=== PATIENT | male | born 1950 | race African-American/Black ===

== ENCOUNTER 2018-06-14 18:03 | Inpatient (IN) | payer OTHER, MEDICARE ==
[~2018-06-14] VITALS: Ht 193 cm; Wt 108.9 kg
[~2018-06-14 18:03] MED LIST: GLIP5TAB12 PO; SIMV10TA6 PO
[2018-06-14] MEDS ORDERED: PIPERACILLIN/TAZ 3.375G PREMIX 50 ML IV ONE (19:15)
[2018-06-14] MEDS ORDERED: VANCOMYCIN 1 G PREMIX 200 ML IV ONE (19:15)
[2018-06-14] MEDS ORDERED: SODIUM CHLORIDE 0.9% 1,000 ML IV ONE (20:33)
[2018-06-14] MEDS ORDERED: ONDANSETRON HCL 4MG/2ML INJ IV ONE (20:45)
[2018-06-14] MEDS ORDERED: MORPHINE SULFATE 4 MG/ML CPJ (NOT FOR IM USE) IV ONE (20:45)
[2018-06-14 21:26] LABS: HEMOGLOBIN. 9.6 g/dL (14.0-18.0); MEAN CORPUSCULAR HEMOGLOBIN 23.8 pg (28.0-32.0); MEAN CORPUSCULAR VOLUME 74.5 fL (80.0-94.0); PLATELET 377 x1000/uL (130-400); RED BLOOD CELL COUNT 4.03 mill/uL (4.7-6.1); RED CELL DISTRIBUTION WIDTH 16.4 % (11.6-14.6)
[2018-06-14 21:33] LABS: CHLORIDE 91 mEq/L (98-107)
[2018-06-14 21:34] LABS: INR 1.2; PARTIAL THROMBOPLASTIN TIME 39.5 sec (23.4-31.0); PROTHROMBIN TIME 11.8 sec (9.1-11.1)
[2018-06-14] MEDS ORDERED: INSULIN REGULAR (HUMULIN R) 300UNITS/3ML IV ONE (21:45)
[2018-06-14] MEDS ORDERED: ENOXAPARIN 100MG/ML SYR SUBCUT ONE (22:00)
[2018-06-14] MEDS ORDERED: LORAZEPAM 0.5MG TABLET PO PRN (22:15)
[2018-06-14] MEDS ORDERED: ONDANSETRON HCL 4MG/2ML INJ IV PRN (22:15)
[2018-06-14] MEDS ORDERED: MAGNESIUM/ALUMINUM HYDROXIDE/SIMETHICONE 30ML UDC PO PRN (22:15)
[2018-06-14] MEDS ORDERED: DEXTROSE 50% WATER 50ML SYRINGE IV PRN (22:15)
[2018-06-14] MEDS ORDERED: GUAIFENESIN 200MG/10ML SUGAR FREE UDC PO PRN (22:15)
[2018-06-14] MEDS ORDERED: NITROGLYCERIN 0.4MG TABLET SL SL PRN (22:15)
[2018-06-14] MEDS ORDERED: CLONIDINE 0.1MG TABLET PO PRN (22:15)
[2018-06-14] MEDS ORDERED: ACETAMINOPHEN 325MG TABLET PO PRN (22:15)
[2018-06-14] MEDS ORDERED: IPRATROPIUM/ALBUTEROL 0.5-3(2.5)MG/3ML NEB INH PRN (22:15)
[2018-06-14] MEDS ORDERED: DOCUSATE SODIUM 100MG CAPSULE PO PRN (22:15)
[2018-06-14] MEDS ORDERED: VANCOMYCIN 1 G PREMIX 200 ML IV SCH (22:15)
[2018-06-14 22:35] LABS: PLATELET ESTIMATE NORMAL
[2018-06-14 22:55] LABS: FOLIC ACID (FOLATE) SERUM 7.7 ng/mL (>5.38)
[2018-06-14] MEDS ORDERED: TRAMADOL 50MG TABLET PO PRN (23:00)
[2018-06-15] MEDS ORDERED: ENOXAPARIN 100MG/ML SYR SUBCUT SCH
[2018-06-15 00:09] LABS: *AMPHETAMINES SCREEN URINE NEGATIVE (NEGATIVE); *BARBITURATES SCREEN URINE NEGATIVE (NEGATIVE); *BENZODIAZEPINES SCREEN URINE NEGATIVE (NEGATIVE); *COCAINE SCREEN URINE NEGATIVE (NEGATIVE)
[2018-06-15 00:10] LABS: CANNABINOID URINE SCREEN NEGATIVE (NEGATIVE); METHADONE URINE SCREEN NEGATIVE (NEGATIVE); OPIATES URINE SCREEN NEGATIVE (NEGATIVE); PHENCYCLIDINE URINE SCREEN NEGATIVE (NEGATIVE)
[2018-06-15] MEDS: ZINC SULFATE 220 MG ( 50 ) CAPSULE PO SCH (11:00)
[2018-06-15] MEDS: ASCORBIC ACID 500 MG TABLET PO SCH ×2 (11:00→22:53)
[2018-06-15] MEDS: FAMOTIDINE 20MG TABLET PO SCH (11:00)
[2018-06-15] MEDS ORDERED: HYDR-2510 MT (11:48)
[2018-06-15] MEDS ORDERED: METF-816 MT (11:48)
[2018-06-15 11:53] VITALS: BP 120/64
[2018-06-15 12:00] VITALS: BP 120/64
[2018-06-15] MEDS ORDERED: VANCOMYCIN 1250MG in DEXTROSE 5% WATER 250ML IV SCH (12:00)
[2018-06-15] MEDS ORDERED: PIPERACILLIN/TAZ 3.375G PREMIX 50 ML IV SCH ×2 (12:00)
[2018-06-15] MEDS: INSULIN LISPRO 100 UNITS/ML SUBCUT SCH ×4 (12:50→22:23)
[2018-06-15] MEDS: BLOOD SUGAR DIAGNOSTIC STRIP TEST SCH ×3 (12:58→21:14)
[2018-06-15 13:19] LABS: HEMOGLOBIN 9.3 g/dL (14.0-18.0); MEAN CORPUSCULAR HEMOGLOBIN 24.1 pg (28.0-32.0); MEAN CORPUSCULAR VOLUME 74.7 fL (80.0-94.0); PLATELET 330 x1000/uL (130-400); RED BLOOD CELL COUNT 3.88 mill/uL (4.7-6.1); RED CELL DISTRIBUTION WIDTH 16.2 % (11.6-14.6)
[2018-06-15 13:23] LABS: CHLORIDE 95 mEq/L (98-107)
[2018-06-15] MEDS: AMLODIPINE 5MG TABLET PO SCH (14:30)
[2018-06-15] MEDS: ENOXAPARIN 100MG/ML SYR SUBCUT SCH (15:33)
[2018-06-15 16:00] VITALS: BP 124/63
[2018-06-15 17:59] LABS: HEPATITIS B SURFACE ANTIGEN NEGATIVE
[2018-06-15] MEDS: PIPERACILLIN/TAZ 3.375G PREMIX 50 ML IV SCH (18:27)
[2018-06-15 18:28] LABS: HEPATITIS A AB IGM NEGATIVE (NEGATIVE)
[2018-06-15] MEDS: SILVER SULFADIAZINE 1% CREAM 50GM TOP SCH (18:29)
[2018-06-15 20:00] VITALS: BP 122/61
[2018-06-16] VITALS: BP 120/57
[2018-06-16] MEDS: PIPERACILLIN/TAZ 3.375G PREMIX 50 ML IV SCH ×5 (00:10→23:22)
[2018-06-16] MEDS: ENOXAPARIN 100MG/ML SYR SUBCUT SCH (03:34)
[2018-06-16 04:00] VITALS: BP 145/68
[2018-06-16 06:20] LABS: HEMATOCRIT 27.6 % (42.0-52.0); MEAN CORPUSCULAR HEMOGLOBIN 24.2 pg (28.0-32.0); MEAN CORPUSCULAR VOLUME 74.4 fL (80.0-94.0); PLATELET 358 x1000/uL (130-400); RED BLOOD CELL COUNT 3.71 mill/uL (4.7-6.1); RED CELL DISTRIBUTION WIDTH 16.8 % (11.6-14.6)
[2018-06-16] MEDS: BLOOD SUGAR DIAGNOSTIC STRIP TEST SCH ×4 (07:20→20:50)
[2018-06-16 08:00] VITALS: BP 128/73
[2018-06-16] MEDS ORDERED: LIDOCAINE HCL 1% 20ML VIAL (Pyxis) INJ ONE (08:42)
[2018-06-16] MEDS: ASCORBIC ACID 500 MG TABLET PO SCH ×2 (09:00→20:50)
[2018-06-16] MEDS: AMLODIPINE 5MG TABLET PO SCH (09:00)
[2018-06-16] MEDS: FAMOTIDINE 20MG TABLET PO SCH (09:00)
[2018-06-16] MEDS: ZINC SULFATE 220 MG ( 50 ) CAPSULE PO SCH (09:00)
[2018-06-16] MEDS: SILVER SULFADIAZINE 1% CREAM 50GM TOP SCH (09:01)
[2018-06-16] MEDS: INSULIN LISPRO 100 UNITS/ML SUBCUT SCH ×4 (09:07→21:56)
[2018-06-16] MEDS ORDERED: VANCOMYCIN 1500MG in DEXTROSE 5% WATER 250ML IV NR (10:00)
[2018-06-16] MEDS: INSULIN GLARGINE UD 100 UNITS/ML SYR SUBCUT SCH (11:07)
[2018-06-16] MEDS ORDERED: CLONIDINE 0.1MG TABLET PO PRN (13:00)
[2018-06-16] MEDS ORDERED: CHLORPROMAZINE HCL 25 MG TABLET PO NR (15:00)
[2018-06-16 15:36] VITALS: BP 140/71
[2018-06-16 15:58] LABS: BG BASE EXCESS -2.3 mmol/L (-2.0-2.0); BG CARBOXYHEMOGLOBIN 0.3 % (0.5-1.5); BG DEOXYHEMOGLOBIN 2.4 % (0.0-5.0); BG FRACTION INSPIRED OXYGEN 21; BG HCO3 ACT 21.3 mmol/L (22.0-26.0); BG METHEMOGLOBIN 0.2 % (0.0-1.5); BG OXYGEN SATURATION 97.6 % (92.0-98.5); BG OXYHEMOGLOBIN 97.1 % (94.0-97.0); BG PCO2 32.3 mmHg (35.0-45.0); BG PH 7.438 (7.350-7.450); BG PO2 104.9 mmHg (75.0-100.0); BG SAMPLE SITE RIGHT RADIAL; BG TOTAL HEMOGLOBIN 9.1 g/dL (12.0-18.0); BG VENT MODE ROOM AIR
[2018-06-16] MEDS ORDERED: LORAZEPAM 0.5MG TABLET PO PRN (18:15)
[2018-06-16 20:00] VITALS: BP 123/69
[2018-06-16] MEDS: ZOLPIDEM TARTRATE 5MG TABLET PO PRN (23:28)
[2018-06-17] VITALS: BP 130/58
[2018-06-17 04:00] VITALS: BP 143/60
[2018-06-17] MEDS: PIPERACILLIN/TAZ 3.375G PREMIX 50 ML IV SCH ×2 (05:33→12:00)
[2018-06-17] MEDS: SODIUM CHLORIDE 0.9% 1,000 ML IV SCH ×2 (05:35→20:06)
[2018-06-17 06:49] LABS: HEMATOCRIT. 25.9 % (42.0-52.0); HEMOGLOBIN. 8.3 g/dL (14.0-18.0); MEAN CORPUSCULAR HEMOGLOBIN 23.6 pg (28.0-32.0); MEAN CORPUSCULAR VOLUME 73.3 fL (80.0-94.0); PLATELET 390 x1000/uL (130-400); RED BLOOD CELL COUNT 3.53 mill/uL (4.7-6.1); RED CELL DISTRIBUTION WIDTH 16.6 % (11.6-14.6)
[2018-06-17 07:04] LABS: CHLORIDE 96 mEq/L (98-107)
[2018-06-17] MEDS: BLOOD SUGAR DIAGNOSTIC STRIP TEST SCH ×4 (07:20→21:53)
[2018-06-17] MEDS: INSULIN LISPRO 100 UNITS/ML SUBCUT SCH ×4 (07:50→21:51)
[2018-06-17] MEDS: SILVER SULFADIAZINE 1% CREAM 50GM TOP SCH (08:59)
[2018-06-17] MEDS: AMLODIPINE 5MG TABLET PO SCH (08:59)
[2018-06-17] MEDS: ASCORBIC ACID 500 MG TABLET PO SCH ×2 (08:59→20:34)
[2018-06-17] MEDS: FAMOTIDINE 20MG TABLET PO SCH (08:59)
[2018-06-17] MEDS: ZINC SULFATE 220 MG ( 50 ) CAPSULE PO SCH (08:59)
[2018-06-17] MEDS: INSULIN GLARGINE UD 100 UNITS/ML SYR SUBCUT SCH (09:07)
[2018-06-17 11:03] LABS: PLATELET ESTIMATE NORMAL
[2018-06-17] MEDS ORDERED: BACITRACIN 50,000 UNITS/VIAL ONE ×2 (11:25→11:45)
[2018-06-17] MEDS ORDERED: NORMAL SALINE 0.9% 10 ML SYR ONE ×2 (11:25→11:46)
[2018-06-17] MEDS ORDERED: BACITRACIN 15GM TUBE TOP ONE (11:26)
[2018-06-17] MEDS ORDERED: LIDOCAINE HCL/EPINEPHRINE 1%-EPI 1:100,000 20 ML VIAL ONE (11:34)
[2018-06-17] MEDS ORDERED: FENTANYL CITRATE/PF 50MCG/ML 2ML VIAL ONE (11:35)
[2018-06-17] MEDS ORDERED: MIDAZOLAM HCL 2 MG/2 ML VIAL ONE (11:35)
[2018-06-17] MEDS ORDERED: PROPOFOL 200MG/20ML VIAL IV ONE (11:35)
[2018-06-17 16:00] VITALS: BP 140/67
[2018-06-17] MEDS ORDERED: VANCOMYCIN 1 G PREMIX 200 ML IV NR (18:00)
[2018-06-17 20:00] VITALS: BP 137/63
[2018-06-17] MEDS ORDERED: ALBUMIN HUMAN 25GM/100ML (25%) IV NR (20:30)
[2018-06-18] VITALS (10 sets, daily range): BP systolic 125–141; BP diastolic 60–88
[2018-06-18] MEDS: CEFAZOLIN 2,000 MG in DEXT 5% WATER 100 ML IV SCH ×3 (03:33→20:27)
[2018-06-18 06:20] LABS: BASOPHILS % 0.2 % (0.0-2.0); EOSINOPHILS % 0.6 % (0.0-5.0); HEMATOCRIT. 22.7 % (42.0-52.0); HEMOGLOBIN. 7.3 g/dL (14.0-18.0); LYMPHOCYTES % 7.3 % (20.0-50.0); MEAN CORPUSCULAR HEMOGLOBIN 23.8 pg (28.0-32.0); MEAN CORPUSCULAR VOLUME 73.6 fL (80.0-94.0); MEAN PLATELET VOLUME 7.8 fl (7.4-10.4); MONOCYTES % 14.2 % (2.0-8.0); NEUTROPHILS % 77.7 % (40.0-76.0); PLATELET 347 x1000/uL (130-400); RED BLOOD CELL COUNT 3.08 mill/uL (4.7-6.1); RED CELL DISTRIBUTION WIDTH 16.8 % (11.6-14.6)
[2018-06-18] MEDS: BLOOD SUGAR DIAGNOSTIC STRIP TEST SCH ×4 (06:28→20:42)
[2018-06-18 07:19] LABS: PHOSPHORUS 4.5 mg/dL (2.5-4.9)
[2018-06-18] MEDS: INSULIN LISPRO 100 UNITS/ML SUBCUT SCH ×4 (07:57→20:41)
[2018-06-18] MEDS: CHLORPROMAZINE HCL 25 MG TABLET PO PRN ×2 (07:58→17:22)
[2018-06-18] MEDS: FAMOTIDINE 20MG TABLET PO SCH (08:07)
[2018-06-18] MEDS: ZINC SULFATE 220 MG ( 50 ) CAPSULE PO SCH (08:07)
[2018-06-18] MEDS: ASCORBIC ACID 500 MG TABLET PO SCH ×2 (08:07→20:26)
[2018-06-18] MEDS: AMLODIPINE 5MG TABLET PO SCH (08:08)
[2018-06-18] MEDS: SILVER SULFADIAZINE 1% CREAM 50GM TOP SCH (08:08)
[2018-06-18 11:46] LABS: CLARITY URINE CLOUDY (CLEAR); COLOR URINE YELLOW (YELLOW); KETONES URINE NEGATIVE (NEGATIVE); LEUKOCYTE ESTERASE URINE NEGATIVE (NEGATIVE); NITRITE URINE NEGATIVE (NEGATIVE); OCCULT BLOOD URINE TRACE (NEGATIVE); PROTEIN URINE TRACE (NEGATIVE); SPECIFIC GRAVITY URINE 1.008 (1.005-1.030)
[2018-06-18] MEDS: INSULIN GLARGINE UD 100 UNITS/ML SYR SUBCUT SCH (12:06)
[2018-06-18] MEDS: SODIUM CHLORIDE 0.9% 1,000 ML IV SCH (16:06)
[2018-06-18 19:52] LABS: HEMATOCRIT 27.1 % (42.0-52.0); HEMOGLOBIN 8.6 g/dL (14.0-18.0)
[2018-06-19] VITALS (7 sets, daily range): BP systolic 99–156; BP diastolic 60–83
[2018-06-19] MEDS: CHLORPROMAZINE HCL 25 MG TABLET PO PRN ×2 (01:14→12:36)
[2018-06-19] MEDS: ZOLPIDEM TARTRATE 5MG TABLET PO PRN (01:14)
[2018-06-19] MEDS: BLOOD SUGAR DIAGNOSTIC STRIP TEST SCH ×3 (07:20→18:12)
[2018-06-19 07:50] LABS: HEMATOCRIT. 26.7 % (42.0-52.0); HEMOGLOBIN. 8.5 g/dL (14.0-18.0); MEAN CORPUSCULAR HEMOGLOBIN 23.6 pg (28.0-32.0); MEAN CORPUSCULAR VOLUME 74.6 fL (80.0-94.0); MEAN PLATELET VOLUME 7.8 fl (7.4-10.4); PLATELET 394 x1000/uL (130-400); RED BLOOD CELL COUNT 3.59 mill/uL (4.7-6.1)
[2018-06-19] MEDS: FAMOTIDINE 20MG TABLET PO SCH (09:00)
[2018-06-19] MEDS: ZINC SULFATE 220 MG ( 50 ) CAPSULE PO SCH (09:00)
[2018-06-19] MEDS: ASCORBIC ACID 500 MG TABLET PO SCH (09:00)
[2018-06-19] MEDS: AMLODIPINE 5MG TABLET PO SCH (09:00)
[2018-06-19] MEDS: CEFAZOLIN 2,000 MG in DEXT 5% WATER 100 ML IV SCH (09:33)
[2018-06-19] MEDS: INSULIN LISPRO 100 UNITS/ML SUBCUT SCH ×3 (09:37→18:22)
[2018-06-19 09:54] LABS: PHOSPHORUS 3.6 mg/dL (2.5-4.9)
[2018-06-19] MEDS: INSULIN GLARGINE UD 100 UNITS/ML SYR SUBCUT SCH (11:04)
[2018-06-19] MEDS: SODIUM CHLORIDE 0.9% 1,000 ML IV SCH (12:38)
[2018-06-19 13:07] LABS: A/G RATIO 0.6 (0.7-1.7); ALBUMIN 2.1 g/dL (2.9-4.4); ALPHA-1-GLOBULIN 0.5 g/dL (0.0-0.4); ALPHA-2-GLOBULIN 0.8 g/dL (0.4-1.0); BETA GLOBULIN 0.9 g/dL (0.7-1.3); GAMMA GLOBULINS 1.6 g/dL (0.4-1.8); GLOBULIN TOTAL 3.8 g/dL (2.2-3.9); KAPPA LT CHAINS FREE SERUM 141.7 mg/L (3.3-19.4); KAPPA/LAMBDA RATIO 1.82 (0.26-1.65); LAMBDA LT CHAINS FREE SERUM 77.7 mg/L (5.7-26.3); M-SPIKE Not Observed g/dL (Not Observed); TOTAL PROTEIN SERUM 5.9 g/dL (6.0-8.5)
[2018-06-19 13:52] LABS: PLATELET ESTIMATE NORMAL
[2018-06-19] MEDS ORDERED: TRAMADOL 50MG TABLET PO PRN (18:00)
[2018-06-19] MEDS ORDERED: LORAZEPAM 0.5MG TABLET PO PRN (18:15)
[2018-06-20] MEDS ORDERED: APIXABAN 5 MG TABLET PO SCH (09:00)
[2018-06-23 07:16] LABS: ALBUMIN URINE 23.1 % (.); ALPHA-1-GLOBULIN URINE 5.5 % (.); ALPHA-2-GLOBULIN URINE 16.6 % (.); BETA GLOBULIN URINE 19.5 % (.); GAMMA GLOBULIN URINE 35.3 % (.); TOTAL PROTEIN RANDOM URINE 33.3 mg/dL (Not Estab.)
== END 2018-06-19 19:15 | DRG 853 ==
LOC: ER 18:03 → 6EST 20:35 → EDBEDREQTM 20:39 → EDBEDREQ 20:39 → EDBEDREQSVC 20:39 → EDBEDREQTM 21:58 → CANRESERV 06-15 07:50 → ENRESERV 06-15 07:50 → EDBEDREQSVC 06-15 08:15 → SUPCPDRO 06-15 08:33 → ENRESERV 06-15 10:09
PROVIDERS: ADMIT Internal Medicine; ATTEND Internal Medicine
PROC: 02HV33Z Insertion of Infusion Device into Superior Vena Cava, Percutaneous Approach (ICD-10-PCS; 2018-06-16)
PROC: B5181ZA Fluoroscopy of Superior Vena Cava using Low Osmolar Contrast, Guidance (ICD-10-PCS; 2018-06-16)
PROC: B548ZZA Ultrasonography of Superior Vena Cava, Guidance (ICD-10-PCS; 2018-06-16)
PROC: 0Y9L3ZZ Drainage of Left Ankle Region, Percutaneous Approach (ICD-10-PCS; principal; 2018-06-17)
PROC: 0QBK0ZZ Excision of Left Fibula, Open Approach (ICD-10-PCS; 2018-06-17)
PROC: 30233N1 Transfusion of Nonautologous Red Blood Cells into Peripheral Vein, Percutaneous Approach (ICD-10-PCS; 2018-06-18)
DX: A41.01 Sepsis due to Methicillin susceptible Staphylococcus aureus (principal); E43 Unspecified severe protein-calorie malnutrition; L03.116 Cellulitis of left lower limb; E87.1 Hypo-osmolality and hyponatremia; D68.59 Other primary thrombophilia; I82.431 Acute embolism and thrombosis of right popliteal vein; E87.2 Acidosis; N39.0 Urinary tract infection, site not specified; M87.9 Osteonecrosis, unspecified; L02.416 Cutaneous abscess of left lower limb; L97.329 Non-pressure chronic ulcer of left ankle with unspecified severity; T79.7XXA Traumatic subcutaneous emphysema, initial encounter; M86.8X6 Other osteomyelitis, lower leg; N17.9 Acute kidney failure, unspecified; R65.20 Severe sepsis without septic shock; E11.65 Type 2 diabetes mellitus with hyperglycemia; E83.52 Hypercalcemia; D63.8 Anemia in other chronic diseases classified elsewhere; E86.0 Dehydration; E78.5 Hyperlipidemia, unspecified; E11.69 Type 2 diabetes mellitus with other specified complication; E11.621 Type 2 diabetes mellitus with foot ulcer; B96.1 Klebsiella pneumoniae [K. pneumoniae] as the cause of diseases classified elsewhere; E11.22 Type 2 diabetes mellitus with diabetic chronic kidney disease; E80.6 Other disorders of bilirubin metabolism; E11.42 Type 2 diabetes mellitus with diabetic polyneuropathy; E11.51 Type 2 diabetes mellitus with diabetic peripheral angiopathy without gangrene; E11.628 Type 2 diabetes mellitus with other skin complications; I12.9 Hypertensive chronic kidney disease with stage 1 through stage 4 chronic kidney disease, or unspecified chronic kidney disease; M14.672 Charcot's joint, left ankle and foot; E11.622 Type 2 diabetes mellitus with other skin ulcer; M65.9 Synovitis and tenosynovitis, unspecified; N18.2 Chronic kidney disease, stage 2 (mild); N40.1 Benign prostatic hyperplasia with lower urinary tract symptoms; S93.06XA Dislocation of unspecified ankle joint, initial encounter; X58.XXXA Exposure to other specified factors, initial encounter; Y93.89 Activity, other specified; Y92.89 Other specified places as the place of occurrence of the external cause; Y99.8 Other external cause status; Z79.899 Other long term (current) drug therapy; Z82.49 Family history of ischemic heart disease and other diseases of the circulatory system; Z83.3 Family history of diabetes mellitus; Z68.29 Body mass index [BMI] 29.0-29.9, adult; Z79.84 Long term (current) use of oral hypoglycemic drugs; R33.8 Other retention of urine
CPT/HCPCS: 36415; 36569; 36600; 71045; 73630; 73721; 74176; 76700; 76937; 77001; 80048; 80061; 80076; 80202; 80305; 82248; 82375; 82533; 82550; 82570; 82607; 82746; 82805; 82962; 83036; 83540; 83550; 83605; 83735; 83880; 83883; 83970; 84100; 84145; 84153; 84155; 84156; 84165; 84166; 84484; 84550; 85014; 85018; 85027; 85651; 86140; 86705; 86709; 86803; 86850; 86900; 86920; 87070; 87077; 87186; 87340; 93005; 93306; 93923; 93970; 96374; 96375; 97162; 99291; C1725; J0690; J1650; J1815; J2250; J2270; J2405; J2543; J2704; J3010; J3370; J3490; J7030; J7060; P9016; P9047; Q0161; A4315; G0103